=== PATIENT | female | born 1990 | race Two or more races ===

== ENCOUNTER 2023-06-08 05:04 | Inpatient (IN) | payer BC, OTHER, SELFPAY ==
[2023-06-08] VITALS (129 sets, daily range): BP systolic 80–149; BP diastolic 47–97; PULSE 77–183; TEMP 36.4–37.1; O2SAT 94–100; BMI 42.9
--- NOTE | 2023-06-08 05:32 | LDADM ---
This patient, Rimma Mejia, was admitted to Labor/Delivery/Recovery 102 on 06/08/23 at 05:04. Plans for labor, pain management and were discussed with patient. Patient/family oriented to hospital policies and general routines including ID bracelet, bed and alarms, visiting hours, pain management, procedures, bathroom and other care routines, personal items, smoking policy, room service/diet and guest tray routines, infant security routines, and visiting hours. Patient/Family are encouraged to report perceived risks to care and to ask questions if they do not understand what they are told or what they should do. See OBIX for further documentation.
[2023-06-08 06:56] LABS: Basophils Absolute Auto 0.1 K/mm3 (0.0-0.1); Basophils Percent Auto 0.5 % (0.2-1.2); Eosinophils Absolute Auto 0.2 K/mm3 (0-0.3); Eosinophils Percent Auto 2.1 % (0-4.4); Hematocrit 35.7 % (37.0-47.0); Hemoglobin 12.8 g/dL (12.0-15.0); Immature Granulocyte Absolute 0.04 K/mm3 (0.00-0.031); Immature Granulocyte Percent A 0.4 % (0-0.5); Lymphocytes Absolute Auto 2.49 K/mm3 (0.9-3.2); Lymphocytes Percent Auto 25.3 % (18.3-44.2); Mean Corpuscular HGB Conc 35.9 g/dl (32-36); Mean Corpuscular Hemoglobin 27.9 pg (26-34); Mean Corpuscular Volume 77.8 fl (80-100); Mean Platelet Volume 12.8 fl (7.4-10.4); Monocytes Percent Auto 9.6 % (2.6-8.5); Neutrophils Absolute Auto 6.1 K/mm3 (1.3-6.7); Neutrophils Percent Auto 62.1 % (45.5-73.1); Platelet Count Result 188 k/mm3 (150-375); Red Blood Count 4.59 M/mm3 (4.2-5.4); Red Cell Distribution Width 14.1 % (11.5-14.5); White Blood Count 9.9 K/mm3 (4.5-10.0)
--- NOTE | 2023-06-08 07:29 | WPDOBADMIT ---
Obstetrics - Admit Note Admission Note: record reviewed. No pertinent additions to the history and/or any subsequent changes in the physical findings that are not consistent with the expected course of the were found. TOLAC, complicated by obesity, hypothyroidism, SVE /-2 AROM clear odorless fluid, anticipate vaginal delivery, IUPC placed. PT consented to TOLAC and being co-managed with dr. vega Additions to the history and/or subsequent changes in the physical findings follow. None.
--- NOTE | 2023-06-08 09:56 | WPDANESEPP ---
Anes - Eval Pre Procedure Procedure: labor epidural Date/Time: 06/08/23 09:56 Surgeon: silvia Preop Diagnosis: pain during labor Pre Op Diagnosis: Induction of Labor Patient Data Age: 33 Gender: F Height: 1.63 m Weight: 113.39 kg Last Vital Signs Pulse 100 06/08/23 08:32 BP 123/69 06/08/23 08:32 O2 Del Method Room Air 06/08/23 05:32 Allergies Allergy/AdvReac Type Severity Reaction Status Date / Time amoxicillin Allergy Severe Hives Verified 05/11/23 12:34 Home Medications Medication Instructions Recorded Confirmed Type prenat.vits,stephane,hbm-wgmk-qtckh 1 tablet 05/11/23 History Laboratory Tests 06/08/23 06/08/23 05:47 06:51 WBC 9.9 K/mm3 (4.5-10.0) RBC 4.59 M/mm3 (4.2-5.4) Hgb 12.8 g/dL (12.0-15.0) Hct 35.7 L % (37.0-47.0) MCV 77.8 L fl (80-100) MCH 27.9 pg (26-34) MCHC 35.9 g/dl (32-36) RDW 14.1 % (11.5-14.5) Plt Count 188 k/mm3 (150-375) MPV 12.8 H fl (7.4-10.4) Immature Gran % (Auto) 0.4 % (0-0.5) Neut % (Auto) 62.1 % (45.5-73.1) Lymph % (Auto) 25.3 % (18.3-44.2) [place] % (Auto) 9.6 H % (2.6-8.5) Eos % (Auto) 2.1 % (0-4.4) Baso % (Auto) 0.5 % (0.2-1.2) Lymph # (Auto) 2.49 K/mm3 (0.9-3.2) [place] # (Auto) 1.0 H K/mm3 (0.1-0.6) Eos # (Auto) 0.2 K/mm3 (0-0.3) Baso # (Auto) 0.1 K/mm3 (0.0-0.1) Abs Immat Gran (auto) 0.04 H K/mm3 (0.00-0.031) Absolute Neuts (auto) 6.1 K/mm3 (1.3-6.7) Absolute Nucleated RBC 0.0 K/mm3 (0.0-0.012) Nucleated RBC % 0.0 % (0.0-0.2) RPR Pending Blood Type O Positive Antibody Screen Positive Antibody Identification Pending Antigen Identification Pending DIANNA, IgG Interpret Pending DIANNA, Poly Interpret Pending DIANNA, Complement Interp Pending Patient hx anesthesia problems: none Family hx anesthesia problems: none Results Review: All pre-operative results and documents have been reviewed as part of the pre-operative evaluation. [facility] Past Medical History Medical History (Updated 06/08/23 @ 09:58 by Hilary Palm CRNA) Encounter for IUD removal Morbid obesity Surgical History Surgical History Delivery by section H/O gynecological procedure mirena iud insertion 2017 Family History Family History (Updated 05/11/23 @ 12:36 by Sonia Cifuentes RN) Father Hypertension Mother Melanoma Social History Social History Smoking status: Never smoker Alcohol intake: never Substance use: never Substance use type: does not use Lack of Transportation: No Lack of Food: Never True Current Housing: I Have Housing Concerned About Future Housing: No Difficulty Paying Gas/Electric Bills: No Difficulty Paying for Meds: No Currently Unemployed: No Education: High School Diploma/GED Difficulty w/ Childcare or Family Care: No Living arrangements: with family Occupation/Education: occupation Gender identity (if verbalized by the patient): Female Sexual Orientation (if Verbalized by the Patient): Straight or Heterosexual Spiritual care concerns: No Exam Day of Procedure 06/08/23 09:56
[2023-06-08] MEDS: LACTATED RINGERS 1,000 ML 125 ML IV CONT ×3 (11:15→20:05)
[2023-06-08] MEDS: OXYTOCIN 30 UNITS/NS 500 ML 30 UNITS/500 ML BAG IV CONT (11:16)
[2023-06-08 14:31] LABS: Rapid Plasma Reagin Non-Reactive (NonReactive)
[2023-06-09] VITALS (78 sets, daily range): BP systolic 103–153; BP diastolic 51–118; PULSE 95–138; RESP 16–18; TEMP 36.9–38.4; O2SAT 86–100
[2023-06-09] MEDS: LACTATED RINGERS 1,000 ML 125 ML IV CONT (00:15)
[2023-06-09] MEDS: ACETAMINOPHEN 500 MG TABLET 1000 MG PO (00:31)
[2023-06-09] MEDS: VANCOMYCIN 1,000 MG/NS 250 ML 1,000 MG/250 ML BAG 250 MG IVPB (01:22)
[2023-06-09] MEDS: GENTAMICIN SULFATE INJ 390 MG in DEXTROSE 5% 100 ML 109.75 MG IVPB (02:40)
[2023-06-09] MEDS: diphenhydrAMINE HCl INJ 50 MG/ML VIAL 25 MG IV PUSH (03:50)
[2023-06-09] MEDS: SODIUM CHLORIDE 0.9% IV 1,000 ML 150 ML I-UTERINE (04:19)
[2023-06-09] MEDS: fentaNYL CITRATE INJ (*CRX) 100 MCG/2 ML VIAL 50 MCG IV PUSH (05:09)
--- NOTE | 2023-06-09 05:20 | P.PCNOB_ITS ---
OB - Delivery Note Procedure Delivery date: 06/09/23 Procedure: Events: Previous Delivery Induction method: AROM and Per Pitocin Protocol Delivery monitor: External FHT and Internal Uterine Route of delivery: Laceration Description: Superficial Delivery repair: vicryl (x2, hemostasis achieved) Specimen: No Quantitative Blood Loss (ml): 125 Anesthesia type: Epidural Disposition: Floor [place] Baby Date of : 06/09/23 Time of : 05:00 Weeks of gestation at delivery: 40 Infant gender: Male Weight (pounds): 7 Weight (ounces): 15 presentation: vertex position: Left Occiput Anterior Placenta delivery description: Spontaneous Cord Vessel Description: 3 Vessels, Nuchal Cord, Clamped/Cut, Around Body (x1) and Around Extremity (x2) score one minute: 7 score five minutes: 9 Narrative: mother and baby in stable condition
[2023-06-09] MEDS: OXYTOCIN 30 UNITS/NS 500 ML 30 UNITS/500 ML BAG 999 UNITS IV CONT (05:25)
[2023-06-09] MEDS: OXYTOCIN 30 UNITS/NS 500 ML 30 UNITS/500 ML BAG 125 UNITS IV CONT (06:06)
[2023-06-09] MEDS: WITCH HAZEL 40 PADS 1 PAD TOPICAL (07:48)
[2023-06-09] MEDS: BENZOCAINE 20% AER SPR (*SP) 56 GM CAN 1 SPRAY TOPICAL (07:48)
--- NOTE | 2023-06-09 08:05 | PC.NURSE ---
Patient transferred to post room #281 via wheelchair. Support person present. Oriented to unit, room, information board, rooming in, admission packet and security measures. Patient verbalizes understanding.
[2023-06-09] MEDS: IBUPROFEN 600 MG TABLET PO ×2 (09:00→17:06)
[2023-06-09] MEDS: MULTIVIT/MIN/PREN/FOL AC/IRON TABLET 1 TAB PO (09:00)
[2023-06-09] MEDS: LANOLIN (LANSINOH) 7.5 GM CREAM 1 APPLIC TOPICAL (09:01)
[2023-06-10 00:45] VITALS: BP 125/63; PULSE 107; RESP 16; TEMP 37.3; O2SAT 100
[2023-06-10] MEDS: ACETAMINOPHEN 325 MG TABLET 650 MG PO (02:42)
[2023-06-10 04:50] VITALS: BP 96/74; PULSE 110; RESP 16; TEMP 36.8
[2023-06-10 05:31] LABS: Hematocrit 29.9 % (37.0-47.0); Hemoglobin 10.6 g/dL (12.0-15.0)
[2023-06-10 07:47] VITALS: BP 116/70; PULSE 100; RESP 16; TEMP 37; O2SAT 100
[2023-06-10] MEDS: IBUPROFEN 600 MG TABLET PO ×2 (09:19→15:43)
[2023-06-10] MEDS: MULTIVIT/MIN/PREN/FOL AC/IRON TABLET 1 TAB PO (09:19)
[2023-06-10] MEDS: TETANUS,DIPHTHERIA,AC PERTUSSIS ADULT (0.5 ML) BOOSTRIX IM (09:20)
--- NOTE | 2023-06-10 09:22 | PM.OBPNVD ---
OB - PN: Subj Subjective Date/time seen: 06/10/23 09:22 s/p vaginal delivery day 1 doing well no complaints OB - PN: Obj Data Labs 06/10/23 05:01 Labs: Laboratory Results - last 24 hr 06/10/23 05:01 Hgb 10.6 L Hct 29.9 L OB - PN A/P Plan day: 1 Time Spent With Patient Time: Total time spent is greater than 50% in coordination of care (as documented) at patient's floor/unit and/or counseling patient: Review of Systems Review of Systems: All systems reviewed & are unremarkable except as noted in HPI and below Exam Const: General: cooperative, healthy appearing and comfortable Resp: Effort & Inspection: normal respiratory effort Cardio: Rate: regular rate Rhythm: regular rhythm GI: Other: soft Skin: General skin exam: normal color Neuro: General: patient oriented x3 Extrem: Right lower extremity: normal to inspection Left lower extremity: normal to inspection Psych: Appearance: grossly normal
--- NOTE | 2023-06-10 12:08 | WPDANLDPN2 ---
Anes-Prog Note L&D Date/Time: 06/10/23 12:08 Comfortable throughout: labor and delivery Neuraxial method: epidural Epidural/Spinal procedure site: clean & non-tender Neuro status: Neuro function grossly intact. Cardiovascular status: normal Respiratory status: normal Airway patency: baseline Mental status: baseline Post-Op hydration status: normal Vital Signs: Last Vital Signs Temp 37.0 C 06/10/23 07:47 Pulse 100 06/10/23 07:47 Resp 16 06/10/23 07:47 BP 116/70 06/10/23 07:47 Pulse Ox 100 06/10/23 07:47 O2 Del Method Room Air 06/08/23 05:32 Pain score (VAS): 2/10 I/O: Intake & Output 06/09/23 06/10/23 06/10/23 23:59 07:59 15:59 Intake Total 240 Balance 240 Post-procedural complaints: none Patient feedback: Patient satisfied with anesthetic care.
[2023-06-10 20:45] VITALS: BP 115/75; PULSE 101; RESP 16; TEMP 36.6; O2SAT 98
[2023-06-10 23:30] VITALS: TEMP 36.3
[2023-06-11] MEDS: IBUPROFEN 600 MG TABLET PO ×2 (01:10→08:39)
--- NOTE | 2023-06-11 07:27 | PM.OBPNVD ---
OB - PN: Subj Subjective Date/time seen: 06/11/23 07:27 s/p vaginal delivery, day 2 doing well, d/c home OB - PN: Obj Data Labs 06/10/23 05:01 OB - PN A/P Plan day: 2 Plan: routine care and discharge home Time Spent With Patient Time: Total time spent is greater than 50% in coordination of care (as documented) at patient's floor/unit and/or counseling patient: Review of Systems Review of Systems: All systems reviewed & are unremarkable except as noted in HPI and below
[2023-06-11 07:30] VITALS: BP 112/71; PULSE 81; RESP 18; TEMP 36.9; O2SAT 100
--- NOTE | 2023-06-11 07:31 | P.DS_ITS ---
DS: Admitting Diagnosis Discharge Date 06/11/23 Admitting Diagnosis DS: Discharge Diagnosis Discharge Diagnosis (1) Vaginal delivery: Code(s): O80 - Encounter for full-term uncomplicated delivery Status: Acute OB - DS: Summary OB Procedures : None OB Procedures Intrapartum: Spontaneous Vag Delivery OB Procedures: : None Time Spent with Patient Time attestation: Total time spent providing and/or coordinating discharge services: Discharge Plan Discharge Attending physician on discharge: Michaela Rojas Discharging Clinician: Dianna Guerrero Patient Disposition: Home, Self-Care Activity: pelvic rest Diet: regular Patient Instructions: Antibiotic Form Stand Alone Forms: General Discharge Information Follow-up/Referrals: Dianna Guerrero CNM [Certified Nurse Embalmer Assistant] - 1 Week Discharge Medications: New ibuprofen 600 mg Tablet 600 mg PO Q6H PRN (Reason: Cramping) Qty: 30 0RF Continued #2 Tablet 1 tablet DAILY Date of admission: 06/08/23 05:04 Primary Care Provider: PHYSICIAN,FISH HATCHERY INSPECTOR Admitting Provider: Michaela Rojas Attending physician on admission: Michaela Rojas Condition: Stable
[2023-06-11] MEDS: MULTIVIT/MIN/PREN/FOL AC/IRON TABLET 1 TAB PO (08:39)
[2023-06-11] MEDS: DOCUSATE SODIUM 100 MG CAPSULE PO (08:39)
[2023-06-11 08:40] VITALS: PULSE 81; RESP 18; O2SAT 100
[2023-06-13 09:23] VITALS: BP 123/80; PULSE 85; RESP 18; TEMP 36.9; O2SAT 97
== END 2023-06-11 11:16 | disposition home or self-care (01) | DRG 806 ==
LOC: ANHLDR 05:09 → ANHOB2 06-09 08:06
PROVIDERS: Advanced Practice Midwife; Admitting Provider Obstetrics & Gynecology; Visit Provider Obstetrics & Gynecology
DX: O99.284 Endocrine, nutritional and metabolic diseases complicating childbirth (principal); O75.2 Pyrexia during labor, not elsewhere classified; Z37.0 Single live birth; Z3A.40 40 weeks gestation of pregnancy; E03.9 Hypothyroidism, unspecified; O34.211 Maternal care for low transverse scar from previous cesarean delivery; O70.0 First degree perineal laceration during delivery; O69.82X0 Labor and delivery complicated by other cord entanglement, without compression, not applicable or unspecified; O99.214 Obesity complicating childbirth; E66.01 Morbid (severe) obesity due to excess calories
CPT/HCPCS: 36415; 84112; 85014; 85018; 85025; 86592; 86850; 86880; 86900; 86901; 86902; 86922; 90715; A9270; J1200; J1580; J2590; J2795; J3010; J3370; J7030; J7120

== ENCOUNTER 2023-08-01 01:16 | Day surgery (SDC) | payer BC, OTHER, SELFPAY ==
[2023-07-19 12:52] VITALS: BMI 39.2
--- NOTE | 2023-07-19 12:54 | PC.NURSE ---
Report to the Outpatient Waiting Room, entrance under the green pavilion located off [facility], at time 1030 on date 08/01/23. Planned Procedure Time: 1230. Time changes happen often and if your time is changed the preop area will call you the afternoon before. - You and your visitor will be asked to self-screen and do not enter if you have any COVID symptoms. - A mask is optional within the hospital at this time. Patients may have clear liquids (water, carbonated beverages, clear teas, apple juice) until 3 hours prior to surgery with a maximum of 20 ounces. - No food from midnight until time of surgery Take the following medications with a SIP of water the morning of surgery: N/A DO NOT STOP ANY OF YOUR OTHER PRESCRIPTION MEDICATIONS PRIOR TO SURGERY ?EXCEPT THE FOLLOWING Medications to discontinue per physician: N/A Date to take last dose: N/A Please no make-up, nail slovenian, hairspray, perfume, deodorant, or body powder the day of surgery. No jewelry (including any body piercings) or valuables the day of surgery, leave them at home. Please take a shower or bath the night before, or the morning of, surgery with an antibacterial soap. Wear comfortable, loose fitting clothing. - Jewelry must be removed prior to entering the operating room. Rings and piercings that are not removed may be cut off. - The hospital will not accept responsibility for valuables. - Please leave all valuables, including medications, at home the day of surgery. If you are going home after surgery, a licensed cdl flatbed truck driver must drive you home. - NO public transportation without another adult if you receive anesthesia. - We recommend that an adult stay with you for 24 hours following discharge. - We also recommend that you do not drive, make important decision, drink alcoholic beverages, or take any drugs that were not prescribed by your health care provider for at least 24 hours after your discharge time. Follow any additional instructions given to you from your surgeon. If you or anyone in your household have experienced Covid symptoms in the past week, please notify your surgeon or the nurse liaison at the phone number below for possible testing. Telephone instructions given to PT - MEAGAN BENOIT and asked if any additional questions and then verbalized understanding. Patient advised to call surgeon office or pre surgery nurse liaison [phone] if any additional questions.
--- NOTE | 2023-07-31 09:43 | WPDANESEPPF ---
Anes - Initial Pre Proc Eval Procedure: Operation Date: 08/01/23 12:30 Proposed Procedures p Laparoscopic Bilateral Salpingectomy - Michaela Rojas MD Date/Time: 07/31/23 09:43 Surgeon: Michaela Rojas MD Pre Op Diagnosis: desires female sterilization Patient Data Age: 33 Gender: F Height: 1.59 m Weight: 98.9 kg Allergies Allergy/AdvReac Type Severity Reaction Status Date / Time amoxicillin Allergy Severe Hives Verified 07/19/23 12:50 Home Medications Medication Instructions Recorded Confirmed Type No Home Medications 07/19/23 07/19/23 History Patient hx anesthesia problems: none Family hx anesthesia problems: none Results Review: All pre-operative results and documents have been reviewed as part of the pre-operative evaluation. [facility] Past Medical History Medical History (Updated 08/01/23 @ 11:08 by Nithin Bocanegra DO) Encounter for IUD removal Surgical History Surgical History Delivery by section H/O gynecological procedure mirena iud insertion 2016 Family History Family History (Updated 05/11/23 @ 12:36 by Sonia Cifuentes RN) Father Hypertension Mother Melanoma Social History Social History Smoking status: Never smoker Alcohol intake: never Substance use: never Substance use type: does not use Lack of Transportation: No Lack of Food: Never True Current Housing: I Have Housing Concerned About Future Housing: No Difficulty Paying Gas/Electric Bills: No Difficulty Paying for Meds: No Currently Unemployed: No Education: High School Diploma/GED Difficulty w/ Childcare or Family Care: No Living arrangements: with family Occupation/Education: occupation Gender identity (if verbalized by the patient): Female Sexual Orientation (if Verbalized by the Patient): Straight or Heterosexual Spiritual care concerns: No Anes - Eval Final PreProcedure Day of Procedure 07/31/23 09:43 Patient weight: obese Heart: regular rate and rhythm Lungs: clear to auscultation Airway: Mallampati scale class II Neurological: alert and oriented Last oral intake: >/= 8 hours ASA classification: III Emergent: no Anesthetic plan: proceed Anesthesia type and monitoring: general ETT and standard monitoring Results Review: All pre-operative results and documents have been reviewed as part of the pre-operative evaluation. Informed Consent: The patient's anesthetic plan and its attendant risks and benefits were discussed with the patient/family/POA. Questions were solicited and answers provided to the satisfaction of the patient/family/POA.
[2023-08-01] VITALS (9 sets, daily range): BP systolic 91–124; BP diastolic 53–90; PULSE 58–73; RESP 12–18; TEMP 36.2–37.2; O2SAT 94–100
[2023-08-01] MEDS: ACETAMINOPHEN 500 MG TABLET 1000 MG PO (11:00)
--- NOTE | 2023-08-01 11:15 | WPDHPUPDATE1 ---
History and Physical Update Update Date/Time: 08/01/23 11:15 History and Physical has been reviewed, including an updated exam of the patient. There are NO changes in the patient's condition. Risks, benefits, and alternatives have been discussed and questions answered. Patient agrees to proceed with procedure.
[2023-08-01] MEDS: LACTATED RINGERS 1,000 ML 30 ML IV CONT ×2 (11:18→12:41)
[2023-08-01] MEDS: KETOROLAC 15 MG/ML VIAL (*BKC) IV PUSH (11:26)
--- NOTE | 2023-08-01 12:52 | W.PM.PROC2 ---
Procedure Note - Detailed Date of Procedure 08/01/23 Pre-op Diagnosis desires female sterilization Post-op Diagnosis Same Procedure Performed Laparoscopic bilateral salpingectomy Surgeon Michaela Rojas MD Anesthesia General Indications Unwanted fertility Findings Normal pelvic anatomy Description of Procedure The patient was taken the operating room. She was prepped and draped in the dorsal lithotomy position after induction of general anesthesia. A 5 mm skin incision was made in the left upper quadrant of the abdominal skin. A 5 mm trocar was inserted the intra-abdominal cavity under direct visualization of the scope. Pneumoperitoneum was achieved. A 5 mm trocar was inserted in the left lower quadrant identical fashion. A 5 mm infraumbilical trocar was inserted in identical fashion as well. The bilateral fallopian tubes were removed. This was done by using a LigaSure cautery. The mesosalpinx adjacent to the tube was cauterized transected with LigaSure. This was initiated in the area the ovary and in a stepwise fashion moved medially to the area of the cornu of the uterus. Once there the fallopian tube was cauterized and transected. This was done in identical fashion on each side. The fallopian tubes were taken out through the left lower quadrant trocar site. The pneumoperitoneum was reduced. The trocars removed. The skin was closed with subcuticular 4 Monocryl and covered with Dermabond. She was taken to cover stable condition. Sponge lap and needle counts were correct x2. Estimated Blood Loss 5 Urine Output -100.0 Drains No Packing No Pathology Yes Complications No immediate complications Condition Stable Disposition PACU
[2023-08-01] MEDS: fentaNYL CITRATE INJ (*CRX) 100 MCG/2 ML VIAL 25 MCG IV PUSH (13:18)
[2023-08-01] MEDS: oxyCODONE HCL (*CRX) 5 MG TAB IR PO (14:00)
== END 2023-08-01 14:49 | disposition home or self-care (01) ==
PROVIDERS: Visit Provider Obstetrics & Gynecology
PROC: (CPT 49320; principal; 2023-08-01 12:30)
DX: Z30.2 Encounter for sterilization (principal); E66.9 Obesity, unspecified; Z68.38 Body mass index [BMI] 38.0-38.9, adult
CPT/HCPCS: 58661; 88302; A9270; J0330; J1100; J1885; J2250; J2405; J2704; J3010; J7030; J7120

== ENCOUNTER 2024-04-01 08:28 | Outpatient (CLI) | payer OTHER, SELFPAY ==
--- NOTE | ~2024-04-01 | XR_ITS ---
Clinical Indication: Preprocedural evaluation PA and lateral views of the chest: Comparison: None Findings: The lungs are clear, without evidence of focal consolidation or pleural effusion. Cardiome diastinal silhouette is within normal limits. Bones and soft tissues are unremarkable. Impression: Normal chest. Reviewed, dictated and finalized at [facility]. Impression: Normal chest.
--- NOTE | 2024-04-01 13:33 | WPDPFTINT ---
PFT Procedure Performed PFT Procedure Performed Spirometry with Pre/Post Bronchodilator Plethysmography (Lung Vol) Diffusing Cap (DLCO) Flow Vol Loop PFT Interpretation This is a pulmonary function test with pre and post-bronchodilator spirometry, plethysmography and diffusing capacity. The test was performed and results interpreted in accordance with the 2019 and 2005 ATS/ERS Task Force guidelines respectively using the Global Lung Function Initiative-2012 reference equations. Patient demonstrated good effort and cooperation. Reproducibility criteria were met. The quality of the pre bronchodilator spirometry maneuver was Grade A and post bronchodilator spirometry maneuver was Grade A. Findings: Spirometry: The contour the inspiratory and expiratory flow tracing are normal. The pre bronchodilator FVC is 3.70 L, 118% predicted. The pre bronchodilator FEV1 is 2.96 L, 111% predicted. The pre bronchodilator FEV1: FVC ratio was 80%. The post bronchodilator FVC is 3.68 L, representing no change. The post bronchodilator FEV1 is 3.13 L, representing a 6% increase. The post bronchodilator FEV1: FVC ratio was 85%. Plethysmography: The total lung capacity is 4.62 L, 107% predicted. The functional residual capacity is 1.82 L, 77% predicted. The residual volume is 0.93 L, 73% predicted. Diffusing capacity: The diffusing capacity unadjusted for hemoglobin and carboxyhemoglobin is 25.2, 103% predicted. The diffusing capacity adjusted for alveolar volume is 5.77, 117% predicted. Impression: The spirometry is normal without evidence of an obstructive abnormality. There is no significant improvement after inhaling a single dose of albuterol. The lung volumes are normal. The diffusing capacity is normal. There are no prior studies for comparison
== END 2024-04-01 08:29 | disposition home or self-care (01) ==
LOC: ANHPFT 08:28
PROVIDERS: Visit Provider Internal Medicine Pulmonary Disease
DX: Z01.811 Encounter for preprocedural respiratory examination (principal)
CPT/HCPCS: 71046; 94060; 94726; 94729

== ENCOUNTER 2024-04-23 08:29 | Outpatient (CLI) | payer OTHER, SELFPAY ==
[2024-05-07 12:40] VITALS: BMI 42.5
--- NOTE | 2024-05-07 12:40 | WPDHOMESLEEP ---
Sleep Study - Home Unattended Date of Study: 04/23/24 Ordering Provider: Greg Whaley MD Interpreting Provider: Hansa Brown, DO Home Sleep Study Type: Watch PAT Height: 1.6 m Weight: 108.862 kg Body Mass Index: 42.5 Neck Circumference (inches): 14.75 [place]: 12 Reason for Sleep Study Daytime hypersomnia Sleep History The patient is a 33-year-old female that had a sleep study ordered by her central aisle cashier for evaluation of sleep apnea. She denies awakening from sleep short of breath. She rarely awakens at night with heartburn, belching or cough. She rarely snores and is never loud enough that others complain. She occasionally has trouble sleeping when she has a cold. She denies waking up gasping for air throughout the night. She denies having breathing problems at night observed by herself or others. She occasionally sweats excessively at night. She denies having heart palpitations or irregular heartbeats during the night. She occasionally falls asleep during the day but never while driving. She denies sleep paralysis, cataplexy and hypnagogic / hypnopompic hallucinations. She denies having trouble at school or work due to sleepiness. She denies feeling afraid of going to sleep. She rarely has nightmares. She occasionally remembers her dreams. She rarely has thoughts racing through her mind. She denies feeling sad or depressed. She rarely has anxiety. She denies having muscular tension. She rarely notices parts of her body jerk. She rarely kicks during the night. She occasionally has crawling and aching feelings in her legs and occasionally has leg pain during the night. She denies grinding her teeth during sleep and denies awakening with morning jaw pain. She is rarely bothered by pain during the day and rarely awakened by pain during the. She occasionally wakes up feeling stiff in the morning. She occasionally wakes up with sore or achy muscles. She occasionally wakes up with pain in the neck, spine and other joints. She goes to bed between 930-10 p.m. on both weekdays and weekends. It takes her 15-20 minutes to fall asleep. She wakes up 1-2 times throughout the night to urinate or make a bottle for her son. She is able to fall back asleep within 10-15 minutes. She wakes up at 6:30 a.m. on weekdays and between 7-8 a.m. on the weekends. She typically gets 7 hours of sleep per night. She will stay in bed for 20 minutes after waking up in the morning. She currently lives with her 3 children. She denies consuming any caffeinated beverages within 2 hours of bedtime. She denies engaging in physical exercise before bedtime. She will read watch television before falling asleep. She will occasionally take naps in the afternoon or the evening but they are not refreshing. She consumes 2 caffeinated beverages per day. She denies tobacco, alcohol and recreational drug use. Sleep Procedure The sleep study was completed using [employer] a technically adequate device with seven channels: peripheral arterial tone, actigraphy, body position, snore, respiratory movement, pulse oximetry, sleep staging, and heart rate. Prior to using the device, the patient received verbal and written instructions for its application and was provided with the help desk phone number for additional telephonic instruction with 24-hour availability of qualified personnel to answer questions. The study was scored using CMS guidelines. Sleep Architecture The total recording time is 5 hrs, 37 min. The total sleep time is 4 hrs, 55 min. Sleep latency is 26 minutes. REM latency is 66 minutes. The patient had 4 episodes of waking. Sleep architecture shows 23.0% deep sleep, 49.3% light sleep, and (as % Total Sleep Time) showed NREM (Light 49.3%; Deep 23.0%), and a 27.7% stage REM. The patient spent 84.3% of total sleep time in the supine position. Sleep efficiency was 87.54%. Respiratory Analysis The overall AHI (pAHI 4%:) is 1.0. The central AHI is
== END 2024-04-24 11:46 | disposition home or self-care (01) ==
LOC: ANHCSM 08:31
PROVIDERS: Visit Provider Internal Medicine Pulmonary Disease
DX: Z01.811 Encounter for preprocedural respiratory examination (principal); G47.19 Other hypersomnia
CPT/HCPCS: 95800

== ENCOUNTER 2024-09-05 09:33 | Outpatient (CLI) | payer OTHER, SELFPAY ==
--- NOTE | 2024-09-05 | ECG_ITS ---
Test Date: 2024-09-05 10:29:06 Measurements Intervals [place] Rate: 71 P: 11 NC: 156 QRS: 36 QRSD: 94 T: 18 QT: 376 QTc: 411 Interpretive Statements SINUS RHYTHM WITH SINUS ARRHYTHMIA MINIMAL Q WAVES- INFERIOR LEADS BORDERLINE ECG No previous ECG available for comparison Electronically Signed On 09-05-2024 10:32:49 [employer]IPPER LAT[employer] by Ayaz Davis D.O.
== END 2024-09-05 09:34 | disposition home or self-care (01) ==
PROVIDERS: PCP Internal Medicine; Visit Provider Internal Medicine
DX: Z01.818 Encounter for other preprocedural examination (principal); R94.31 Abnormal electrocardiogram [ECG] [EKG]
CPT/HCPCS: 93005